=== PATIENT | male | born 1985 | race Caucasian/White ===

== ENCOUNTER 2018-02-06 18:02 | Emergency (ER) | payer OTHER ==
[2018-02-06 18:35] VITALS: BP 141/103
--- NOTE | 2018-02-06 20:29 | EDM.PDOC ---
ED HPI GENERAL MEDICAL PROBLEM - General Chief Complaint: Respiratory Problem Stated Complaint: HEAD CONGESTION SORE THROAT Time Seen by Provider: 02/06/18 19:13 Source of Information: Reports: Patient History Limitations: Reports: No Limitations - History of Present Illness INITIAL COMMENTS - FREE TEXT/NARRATIVE: The patient states that he developed a sore throat, cough occasionally productive of dark brown/greenish sputum, shortness of breath, chest soreness when he coughs, and bilateral ear pain, all yesterday/last night. He states that he has been wheezing, slightly, including now, here in the ED. The patient states that he uses his albuterol MDI every day, including this morning. When I asked him to demonstrate his technique, his technique was very poor. He acknowledges that the albuterol has not helped his symptoms. The patient does not have a peak flow meter or space chamber. The patient reports that he has a history of diabetes, that he checks his blood glucose once a day, with a usual range of 160 to 170. It was 173 earlier today. The patient states that he resides in [place], [place], and that his PCP is there. He does not have a PCP in this area. Chest Pain Score (Numeric/FACES): 4 Throat Pain Score (Numeric/FACES): 6 - Related Data Allergies Allergy/AdvReac Type Severity Reaction Status Date / Time grain dust Allergy Difficulty Uncoded 02/06/18 18:31 Breathing Home Meds: Home Meds Albuterol [Proair HFA] 2 inh INH ASDIRECTED PRN 01/31/14 [History] Chlorpheniramine/HYDROcodone [Tussionex Pennkinetic] 5 ml PO Q12HR #60 ml [Rx] Hydrochlorothiazide. 0 mg PO DAILY 01/31/14 [History] Metoprolol Succinate 0 mg PO DAILY 01/31/14 [History] amLODIPine [Norvasc] 0 mg PO DAILY 01/31/14 [History] levoFLOXacin [Levaquin] 500 mg PO DAILY #8 tab 01/31/14 [Rx] predniSONE [Prednisone] 20 mg PO BID #14 tablet 01/31/14 [Rx] Albuterol/Ipratropium [DuoNeb 3.0-0.5 MG/3 ML] 3 ml NEB Q6HRRT PRN #25 neb 04/10 [Rx] Past Medical History Cardiovascular History: Reports: Hypertension Respiratory History: Reports: Asthma (suspected, not confirmed) Musculoskeletal History: Reports: Back Pain, Chronic Endocrine/Metabolic History: Reports: Diabetes, Type II, Obesity/BMI 30+ - Past Surgical History HEENT Surgical History: Reports: Adenoidectomy, Tonsillectomy Neurological Surgical History: Reports: Lumbar Spine (x 4 - no fusion) Social & Family History - Family History Family Medical History: Noncontributory - Tobacco Use Smoking Status *Q: Current Every Day Smoker Years of Tobacco use: 20 Packs/Tins Daily: 0.5 Packs/Tins Daily Comment: Down from 2 ppd - Caffeine Use Caffeine Use: Reports: Tea - Alcohol Use Alcohol Use History: Yes Alcohol Use Frequency: Rarely - Recreational Drug Use Recreational Drug Use: Yes Drug Use in Last 12 Months: Yes Recreational Drug Type: Reports: Marijuana/Hashish (ordinarily smokes near-daily , but not since early October 2017) - Living Situation & Occupation Living situation: Reports: , Other (with family when in [place], at a man -camp here in [place]) Occupation: Employed (milk delivery driver) ED ROS GENERAL - Review of Systems Review Of Systems: ROS reveals no pertinent complaints other than HPI. ED EXAM, GENERAL - Physical Exam Exam: See Below Exam Limited By: No Limitations General Appearance: Alert, WD/WN, No Apparent Distress Eye Exam: Bilateral Eye: EOMI, Normal Inspection Ears: Normal External Exam, Normal Canal, Hearing Grossly Normal, Normal TMs Nose: Normal Inspection, No Blood, Other (Bilateral nasal mucosa edema) Throat/Mouth: Normal Inspection, Normal Lips, Normal Teeth, Normal Gums, Normal Voice, No Airway Compromise, Other (Oral pharyngeal erythema, but no swelling) Head: Atraumatic, Normocephalic. No: Sinus Tenderness Neck: Normal Inspection, Supple, Non-Tender, Full Range of Motion. No: Lymphadenopathy (L), Lymphadenopathy (R) Respiratory/Chest: No Respiratory Distress, Lungs Clear, Normal Breath Sounds, No Accessory Muscle Use. No: Crackles, Rhonchi, Wheezing, Prolonged Expiration Cardiovascular: Normal Peripheral Pulses, Regular Rate, Rhythm, No Edema, No Gallop, No JVD, No Murmur, No Rub Peripheral Pulses: 4+: Radial (L), Radial (R) GI/Abdominal: Normal Bowel Sounds, Soft, Non-Tender, No Organomegaly, No Distention, No Abnormal Bruit, No Mass, Other (Obese) (Male) Exam: Deferred Rectal (Males) Exam: Deferred Back Exam: Normal Inspection, Full Range of Motion, NT Extremities: Normal Inspection, Normal Range of Motion, No Pedal Edema, Normal Capillary Refill Neurological: Alert, Oriented, Normal Cognition, No Motor/Sensory Deficits Psychiatric: Normal Affect Skin Exam: Warm, Dry, Intact, Normal Color, No Rash Course - Vital Signs Last Recorded V/S: Last Vital Signs Temp Pulse 90 02/06/18 18:32 Resp 18 02/06/18 18:32 BP 141/103 H 02/06/18 18:32 Pulse Ox 91 L 02/06/18 18:32 - Orders/Labs/Meds Orders: Active Orders 24 hr Category Date Time Status Chest 2V [CR] Stat Exams 02/06/18 19:33 Taken CULTURE STREP A CONFIRMATION [RM] Stat Lab 02/06/18 19:32 Results STREP SCRN A RAPID W CULT CONF [RM] Stat Lab 02/06/18 19:32 Results Labs: Laboratory Tests 02/06/18 02/06/18 Range/Units 20:05 20:05 WBC 7.57 (4.23-9.07) K/mm3 RBC 5.86 (4.63-6.08) M/mm3 Hgb 16.8 (13.7-17.5) gm/L Hct 47.6 (40.1-51.0) % MCV 81.2 (79.0-92.2) fl MCH 28.7 (25.7-32.2) pg MCHC 35.3 (32.2-35.5) g/dl RDW Std Deviation 36.7 (35.1-43.9) fL Plt Count 231 (163-337) K/mm3 MPV 10.8 (9.4-12.3) fl Neutrophils % (Manual) 58 (40-60) % Band Neutrophils % 0 (0-10) % Lymphocytes % (Manual) 36 (20-40) % Atypical Lymphs % 0 % Monocytes % (Manual) 5 (2-10) % Eosinophils % (Manual) 0 L (0.8-7.0) % Basophils % (Manual) 1 (0.2-1.2) Platelet Estimate Adequate Plt Morphology Comment Normal RBC Morph Comment Normal Sodium 135 L (136-145) mEq/L Potassium 4.5 (3.5-5.1) mEq/L Chloride 99 (98-107) mEq/L Carbon Dioxide 26 (21-32) mEq/L Anion Gap 14.5 (5-15) BUN 17 (7-18) mg/dL Creatinine 1.0 (0.7-1.3) mg/dL Est Cr Clr Drug Dosing 107.47 mL/min Estimated GFR (MDRD) > 60 (>60) mL/min BUN/Creatinine Ratio 17.0 (14-18) Glucose 422 H (74-106) mg/dL Calcium 9.7 (8.5-10.1) mg/dL Total Bilirubin 0.2 (0.2-1.0) mg/dL AST 1 L (15-37) U/L ALT 25 (16-63) U/L Alkaline Phosphatase 116 (46-116) U/L Total Protein 7.1 (6.4-8.2) g/dl Albumin 3.5 (3.4-5.0) g/dl Globulin 3.6 gm/dL Albumin/Globulin Ratio 1.0 (1-2) - Re-Assessments/Exams Free Text/Narrative Re-Assessment/Exam: 02/06/18 20:28 2-view chest radiograph appears to be normal. Cardiac silhouette is within normal limits. No pulmonary vascular congestion. No pleural effusions. No focal infiltrate. No pneumothorax. Formal read per the Radiologist pending. 02/06/18 21:28 The blood glucose on the patient's CMP has returned elevated at 422. His sodium is depressed at 135, but corrects to 139. The remainder of his CMP, along with his CBC is unremarkable. His rapid strep test is negative, and, as above, his chest x-ray is normal. I suspect that the patient's bilateral ear pain, sore throat, cough, chest pain with cough, dyspnea, and slight wheezing are all due to a viral URI. I explained this to the patient that he does not have pneumonia nor bronchitis. I explained that there are no good treatments to treat his symptoms, and recommended that he avoid [id number] cough or cold remedies, as they have been shown to be of no benefit. I explained that antibiotics are not indicated. I also recommended that he strongly consider quitting smoking. I am more concerned by the patient's hyperglycemia. The patient states that he has not previously had a blood sugar that high. I don't see that the patient needs to be admitted to the hospital, as he does not have any electrolyte abnormalities, and is not acidotic, but I did recommend that we treat his hyperglycemia with some insulin at this time, then have him follow-up in the clinic. The patient asked how insulin was given - I explained that it is given by an injection, and he immediately refused. I then recommended that he of these follow-up in the clinic. The patient responded that his insurance only pays for emergency visits, not clinic visits, and therefore he said he would not be going. He stated that he would take care of his hyperglycemia on his own , by his own methods. I explained that he needs to be careful if he is planning on taking excessive glyburide, as that can cause severe hypoglycemia that can be difficult to treat and could be potentially fatal. I recommended that the patient return to the ED if any problems. 02/06/18 21:29 Notified by Dana MORFIN that the patient left the ED without waiting for discharge instructions. Departure - Departure Time of Disposition: 21:33 Disposition: Eloped 07 Condition: Fair Clinical Impression: Viral URI with cough, Hyperglycemia due to type 2 diabetes mellitus - Discharge Information *PRESCRIPTION DRUG MONITORING PROGRAM REVIEWED*: Not Applicable *COPY OF PRESCRIPTION DRUG MONITORING REPORT IN PATIENT KIMBER: Not Applicable Referrals: PCP,Not In Area [Primary Care Provider] - Forms: ED Department Discharge - My Orders Last 24 Hours: My Active Orders 02/06/18 19:32 CULTURE STREP A CONFIRMATION [RM] Stat STREP SCRN A RAPID W CULT CONF [RM] Stat 02/06/18 19:33 Chest 2V [CR] Stat - Assessment/Plan Last 24 Hours: My Active Orders 02/06/18 19:32 CULTURE STREP A CONFIRMATION [RM] Stat STREP SCRN A RAPID W CULT CONF [RM] Stat 02/06/18 19:33 Chest 2V [CR] Stat
--- NOTE | 2018-02-07 06:58 | CR ---
Chest: Two views of the chest were obtained. Comparison: Prior chest x-ray of 04/10/15. Heart size and mediastinum are normal. Lungs are clear. Bony structures are unremarkable. Impression: 1. Nothing acute is seen on two-view chest x-ray. Diagnostic code #1
== END 2018-02-06 21:20 | disposition left against medical advice (07) ==
LOC: JD.ED 18:02
DX: J06.9 Acute upper respiratory infection, unspecified (principal); E11.65 Type 2 diabetes mellitus with hyperglycemia; E11.9 Type 2 diabetes mellitus without complications; E66.9 Obesity, unspecified; I10 Essential (primary) hypertension; Z79.899 Other long term (current) drug therapy; F17.210 Nicotine dependence, cigarettes, uncomplicated; Z91.048 Other nonmedicinal substance allergy status
CPT/HCPCS: 36415; 71046; 71046-26; 80053; 85007; 85027; 87081; 87430; 99283